=== PATIENT | female | born 1980 | race Caucasian/White ===

== ENCOUNTER → 2017-12-12 | Outpatient (CLI) | payer BC, OTHER ==
[~2017-12-12] MED LIST: BUPR150T73 PO; CARI350T PO; DAPS60GE TP; ESCI10TA10 PO; FERR325T63 PO; GABA400C PO; HYDR-3240 PO; HYDR25TA11 PO; NAPR-685 PO; OXYC-306 PO
== END ==
LOC: STAR 14:29
PROVIDERS: ATTEND Obstetrics & Gynecology
DX: Z02.9 Encounter for administrative examinations, unspecified (principal)

== ENCOUNTER 2017-12-19 05:38 | Day surgery (SDC) | payer BC, OTHER ==
[2017-12-16 08:56] LABS: BASOPHILS # (AUTO) 0.05 x10^3/uL (0-0.1); BASOPHILS % (AUTO) 1 % (0-1); EOSINOPHILS # (AUTO) 0.05 x10^3/uL (0-0.4); EOSINOPHILS % (AUTO) 1 % (1-7); LYMPHOCYTES # (AUTO) 1.18 x10^3/uL (1-3.4); LYMPHOCYTES % (AUTO) 13 % (22-44); MD NO; MEAN CORPUSCULAR VOLUME 78.2 fL (80-100); MEAN PLATELET VOLUME 8.5 fL (7.4-10.4); MONOCYTES # (AUTO) 0.45 x10^3/uL (0.2-0.8); MONOCYTES % (AUTO) 5 % (2-9); NEUTROPHILS # (AUTO) 7.29 x10^3/uL (1.8-6.8); NEUTROPHILS % (AUTO) 81 % (42-75); PLATELET COUNT 266 x10^3/uL (130-400); RED BLOOD COUNT 4.46 x10^6/uL (3.82-5.3); RED CELL DISTRIBUTION WIDTH 18.2 % (9.6-15.2)
[2017-12-16 09:01] LABS: MICROSCOPIC NOT IND
[2017-12-16 09:02] LABS: CULTURE INDICATED? NO
[2017-12-16 10:03] LABS: ALANINE AMINOTRANSFERASE 20 U/L (12-78); ALBUMIN 3.6 g/dL (3.4-5.0); ANION GAP 8 mmol/L (5-15); CALCIUM 8.1 mg/dL (8.5-10.1); CHLORIDE 107 mmol/L (98-107); CREATININE 0.72 mg/dL (0.55-1.02)
[2017-12-16 10:08] LABS: ALKALINE PHOSPHATASE 55 U/L (45-117); BILIRUBIN,TOTAL 0.2 mg/dL (0.2-1.0); TOTAL PROTEIN 7.3 g/dL (6.4-8.2)
[~2017-12-19] VITALS: Ht 160 cm; Wt 82.4 kg
[2017-12-19] MEDS ORDERED: BUPIVACAINE/PF 0.25% ONE ×2 (06:33→06:42)
[2017-12-19] MEDS ORDERED: LIDOCAINE-MPF 1%, 2ML ONE (06:39)
[2017-12-19 06:58] VITALS: BP 117/81
[2017-12-19] MEDS ORDERED: LACTATED RINGERS 1,000 ML IV SCH (07:00)
[2017-12-19] MEDS ORDERED: LIDOCAINE-MPF 1%, 2ML INFIL ONE (07:00)
[2017-12-19] MEDS ORDERED: MIDAZOLAM 1 MG/ML, 2ML ONE (07:09)
[2017-12-19] MEDS ORDERED: FENTANYL PF 250 MCG/5ML ONE (07:09)
[2017-12-19] MEDS ORDERED: LIDOCAINE 4%, 4 ML SYR/CANN TP ONE (07:22)
[2017-12-19] MEDS ORDERED: GLYCOPYRROLATE 0.2MG/1ML, 5ML ONE (07:22)
[2017-12-19] MEDS ORDERED: DEXAMETHASONE 4 MG/ML, 1ML ONE (07:22)
[2017-12-19] MEDS ORDERED: CEFAZOLIN 1,000 MG ONE (07:22)
[2017-12-19] MEDS ORDERED: SUCCINYLCHOLINE 20 MG/ML, 10ML ONE (07:22)
[2017-12-19] MEDS ORDERED: PROPOFOL 10 MG/ML, 20ML ONE (07:22)
[2017-12-19] MEDS ORDERED: ONDANSETRON 2MG/ML, 2ML ONE (07:22)
[2017-12-19] MEDS ORDERED: NEOSTIGMINE 1 MG/ML, 10ML ONE (07:22)
[2017-12-19] MEDS ORDERED: ROCURONIUM 10 MG/ML,10ML ONE (07:28)
[2017-12-19] MEDS ORDERED: EPHEDRINE 50 MG/ML, 1ML ONE (07:28)
[2017-12-19] MEDS ORDERED: KETOROLAC 30 MG/1 ML ONE (07:28)
[2017-12-19 07:45] LABS: HCG UR SG 1.019 (1.003-1.030)
[2017-12-19] MEDS ORDERED: OXYcodone 5 MG/5 ML ORAL.SOL UDC PO PRN (08:00)
[2017-12-19] MEDS ORDERED: HYDROcodone/APAP 7.5-325MG/15ML UDC PO PRN (08:00)
[2017-12-19] MEDS ORDERED: DIAZEPAM 5 MG/ML, 2ML IVPush PRN (08:00)
[2017-12-19] MEDS ORDERED: PROMETHAZINE 12.5 MG SUPP PR PRN (08:00)
[2017-12-19] MEDS ORDERED: PROMETHAZINE 25 MG/ML, 1ML IV PRN (08:00)
[2017-12-19] MEDS ORDERED: MEPERIDINE/PF 25MG/0.5ML IVPush PRN (08:00)
[2017-12-19] MEDS ORDERED: ACETAMINOPHEN 325 MG TABLET PO PRN (08:00)
[2017-12-19] MEDS ORDERED: morphine SULFATE 10 MG/ML, 1ML IV PRN (08:00)
[2017-12-19] MEDS ORDERED: ONDANSETRON 2MG/ML, 2ML IVPush PRN (08:00)
[2017-12-19] MEDS ORDERED: FENTANYL PF 100 MCG/2ML ONE (08:27)
[2017-12-19] MEDS ORDERED: ACETAMINOPHEN 650 MG/20.3 ML UDC ONE (08:27)
[2017-12-19] MEDS ORDERED: OXYcodone 5 MG/5 ML ORAL.SOL UDC ONE (08:27)
[2017-12-19] MEDS: FENTANYL PF 100 MCG/2ML IV PRN ×2 (08:29→08:37)
[2017-12-21] MEDS ORDERED: IBUP200T64 PO (08:45)
== END 2017-12-19 10:35 | disposition home or self-care (01) ==
LOC: OUT 05:38
PROVIDERS: ATTEND Obstetrics & Gynecology
DX: N94.6 Dysmenorrhea, unspecified (principal); F11.20 Opioid dependence, uncomplicated; Z98.51 Tubal ligation status
CPT/HCPCS: 36415; 49320; 80053; 81003; 81025; 84702; 85025; 86850; 86900; J0330; J0690; J1100; J1885; J2250; J2405; J2704; J3010; J3490; J7120; J2710

== ENCOUNTER 2018-01-27 06:52 | Day surgery (SDC) | payer OTHER ==
[~2018-01-27] VITALS: Ht 160 cm; Wt 85.6 kg
[~2018-01-27 06:52] MED LIST changes: +IBUP200T64 PO
[2018-01-27] MEDS ORDERED: MIDAZOLAM 1 MG/ML, 2ML ONE (07:29)
[2018-01-27] MEDS ORDERED: FENTANYL PF 100 MCG/2ML ONE ×2 (07:29→10:51)
[2018-01-27] MEDS ORDERED: LACTATED RINGERS 1,000 ML IV SCH (07:31)
[2018-01-27] MEDS ORDERED: MORP-52 PO (07:38)
[2018-01-27] MEDS ORDERED: AMOXICILLIN PO (07:38)
[2018-01-27 07:44] VITALS: BP 118/78
[2018-01-27] MEDS ORDERED: FAMOTIDINE 20 MG TABLET ONE (07:51)
[2018-01-27] MEDS ORDERED: ONDANSETRON ODT 8 MG ONE (07:51)
[2018-01-27] MEDS ORDERED: OxyconTIN ER 20 MG TAB.ER ONE (07:51)
[2018-01-27] MEDS ORDERED: ACETAMINOPHEN 500 MG TABLET ONE (07:51)
[2018-01-27] MEDS ORDERED: GABAPENTIN 300 MG CAPSULE ONE (07:52)
[2018-01-27] MEDS ORDERED: OxyconTIN ER 20 MG TAB.ER PO ONE (08:00)
[2018-01-27] MEDS ORDERED: FAMOTIDINE 20 MG TABLET PO ONE (08:00)
[2018-01-27] MEDS ORDERED: ACETAMINOPHEN 500 MG TABLET PO ONE (08:00)
[2018-01-27] MEDS ORDERED: GABAPENTIN 300 MG CAPSULE PO ONE (08:00)
[2018-01-27] MEDS ORDERED: ONDANSETRON ODT 8 MG PO ONE (08:00)
[2018-01-27] MEDS ORDERED: BUPIVACAINE/PF-EPI 0.5% 1:200K ONE (08:09)
[2018-01-27 08:38] LABS: HCG UR SG 1.021 (1.003-1.030)
[2018-01-27] MEDS ORDERED: PROPOFOL 10 MG/ML, 20ML ONE (09:05)
[2018-01-27] MEDS ORDERED: DEXAMETHASONE 4 MG/ML, 1ML ONE (09:05)
[2018-01-27] MEDS ORDERED: ROCURONIUM 10MG/ML,5ML ONE (09:07)
[2018-01-27] MEDS ORDERED: CEFAZOLIN 1,000 MG ONE ×2 (09:08)
[2018-01-27] MEDS ORDERED: PROMETHAZINE 12.5 MG SUPP PR PRN (09:30)
[2018-01-27] MEDS ORDERED: hydrALAzine 20 MG/ML, 1ML IV PRN (09:30)
[2018-01-27] MEDS ORDERED: FENTANYL PF 100 MCG/2ML IV PRN (09:30)
[2018-01-27] MEDS ORDERED: OXYcodone 5 MG/5 ML ORAL.SOL UDC PO PRN (09:30)
[2018-01-27] MEDS ORDERED: MORPHINE SULFATE 4 MG/ML, 1ML IVPush PRN (09:30)
[2018-01-27] MEDS ORDERED: PROMETHAZINE 25 MG/ML, 1ML IV PRN (09:30)
[2018-01-27] MEDS ORDERED: MEPERIDINE/PF 25MG/0.5ML IVPush PRN (09:30)
[2018-01-27] MEDS ORDERED: LABETALOL 5MG/ML, 20ML IV PRN (09:30)
[2018-01-27] MEDS ORDERED: HYDROmorphone 1 MG/ML, 1ML IV PRN (09:30)
[2018-01-27] MEDS ORDERED: ONDANSETRON ODT 8 MG PO PRN (09:30)
[2018-01-27] MEDS ORDERED: GLYCOPYRROLATE 0.4 MG/2 ML, 2ML ONE (09:47)
[2018-01-27] MEDS ORDERED: NEOSTIGMINE 1 MG/ML, 10ML ONE (09:47)
[2018-01-27] MEDS ORDERED: morphine SULFATE 10 MG/ML, 1ML IVPush PRN (10:00)
[2018-01-27] MEDS ORDERED: OXYcodone IR 5MG TABLET ONE ×2 (11:34→16:32)
[2018-01-27] MEDS: OXYcodone 5 MG/5 ML ORAL.SOL UDC PO PRN ×2 (11:36→16:33)
== END 2018-01-27 18:58 | disposition home or self-care (01) ==
LOC: OUT 06:52
PROVIDERS: ATTEND Surgery
DX: K43.0 Incisional hernia with obstruction, without gangrene (principal); Z87.39 Personal history of other diseases of the musculoskeletal system and connective tissue; Z98.890 Other specified postprocedural states
CPT/HCPCS: 36415; 49655; 81025; 82728; 83540; 84466; 86850; 86900; C1781; J0690; J1100; J2250; J2704; J2710; J3010; Q0162; S2900; 83550